=== PATIENT | male | born 1950 | race Caucasian/White ===

== ENCOUNTER 2018-04-20 04:53 | Emergency (ER) | payer MEDICARE ==
[~2018-04-20] VITALS: Ht 172.7 cm; Wt 81.2 kg
--- NOTE | 2018-04-20 05:03 | PHYS DOC ---
Adult General Chief Complaint Chief Complaint: SHORTNESS OF BREATH [facility] HPI Patient is a 68-year-old male who presents with complaint of shortness of breath and wheezing that started yesterday. Patient has long history of COPD and he states that he frequently has similar episodes that are exacerbated by cold weather. He states that he had gone out to lunch at [employer] and when he got out of the cold, shortness of breath started. He states that shortness of breath is been going on all night and symptoms are just not improving. Patient did an albuterol nebulizer treatment at home which helped some. Patient indicates that he does have a cough that is nonproductive. He denies any fever or chest pain. Patient states that the shortness of breath is worsened in cold weather and with minimal exertion. Review of Systems Review of Systems Constitutional: Denies fever or chills [] Respiratory: Complains of cough, wheezing and shortness of breath [] Cardiovascular: No additional information not addressed in HPI [] GI: Denies abdominal pain, nausea, vomiting [] Neurologic: Reports mild headache[] All other systems were reviewed and found to be within normal limits, except as documented in this note. Physical Exam Physical Exam Constitutional: Well developed, well nourished, no acute distress, non-toxic appearance. [] HENT: Normocephalic, atraumatic, bilateral external ears normal, oropharynx moist, no oral exudates, nose normal. [] Eyes: PERRLA, EOMI, conjunctiva normal, no discharge. [] Neck: Normal range of motion, no tenderness, supple, no stridor. [] Cardiovascular:Heart rate regular rhythm [] Lungs & Thorax: Breath sounds are diminished bilaterally with expiratory wheezes noted throughout.[] Abdomen: Bowel sounds normal, soft. [] Skin: Warm, dry, no erythema, no rash. [] Extremities: No tenderness, no cyanosis, no clubbing, ROM intact, no edema. [] Neurologic: Alert and oriented X 3, normal motor function, normal sensory function, no focal deficits noted. [] EKG EKG EKG demonstrates atrial fibrillation with rate of 95.[] Radiology/Procedures Radiology/Procedures [] Impressions: Chest x-ray demonstrates no acute process. Course & Med Decision Making Course & Med Decision Making Pertinent Labs and Imaging studies reviewed. (See chart for details) [] Dragon Disclaimer Dragon Disclaimer This electronic medical record was generated, in whole or in part, using a voice recognition dictation system. Departure Departure: Impression: Primary Impression: COPD with acute exacerbation Disposition: HOME, SELF-CARE Condition: STABLE Patient Instructions: Chronic Obstructive Pulmonary Disease Exacerbation Scripts Azithromycin (ZITHROMAX) 250 Mg Tablet 1 PKG PO UD for infection, #6 TAB Prov: JARVIS BANDA Jr. DO 04/20/18 Methylprednisolone (MEDROL) 4 Mg Tab.ds.pk 1 PKG PO UD for COPD, #1 PKG Prov: JARVIS BANDA Jr. DO 04/20/18 JARVIS BANDA Jr. DO Apr 20, 2018 05:03
[2018-04-20] MEDS ORDERED: ALBUTEROL SULFATE 2.5 MG/3 ML NEBU. CONT NEB ONE (05:15)
--- NOTE | 2018-04-20 05:26 | EKG ---
[address] [address] Test Date: 2018-04-20 Test Time: 05:23:01 Pat Name: SKYLAR SHAH Department: Room: Gender: M Distribution Designer: : [id number] Requested By: JARVIS BANDA Order Number: [id number] Reading MD: Josias Faria MD Measurements Intervals [place] Rate: 95 P: MS: QRS: -31 QRSD: 92 T: 70 QT: 354 QTc: 448 Interpretive Statements ATRIAL FIBRILLATION WITH CONTROLLED VENTRICULAR RESPONSE NON-SPECIFIC ST/T CHANGES Electronically Signed On 04-20-2018 11:11:48 GENERAL OFFICE ASSISTANT by Josias Faria MD
[2018-04-20 05:29] LABS: BASO % 0 % (0-3); EOS # 0.2 x10^3/uL (0.0-0.7); EOS % 4 % (0-3); HEMATOCRIT 36.2 % (39.0-53.0); HEMOGLOBIN 11.9 g/dL (13.0-17.5); LYMPH # 0.7 x10^3/uL (1.0-4.8); LYMPH % 15 % (24-48); MEAN CORPUSCULAR HEMOGLOBIN 28 pg (25-35); MEAN CORPUSCULAR HGB CONC 33 g/dL (31-37); MEAN CORPUSCULAR VOLUME 87 fL (79-100); MONO # 0.5 x10^3/uL (0.0-1.1); MONO % 11 % (0-9); NEUT # 3.3 x10^3uL (1.8-7.7); NEUT % 71 % (31-73); PLATELET COUNT 130 x10^3/uL (140-400); RED BLOOD COUNT 4.17 x10^6/uL (4.30-5.70); RED CELL DISTRIBUTION WIDTH 16.1 % (11.5-14.5); WHITE BLOOD COUNT 4.7 x10^3/uL (4.0-11.0)
[2018-04-20] MEDS ORDERED: IPRATROPIUM BROMIDE 0.5 MG/2.5 ML NEBU. NEB ONE (05:30)
[2018-04-20] MEDS ORDERED: methylPREDNISolone SOD SUCC PF 125 MG/2 ML VIAL. IV ONE (05:30)
[2018-04-20 05:47] LABS: ALBUMIN/GLOBULIN RATIO 0.8 (1.0-1.7); CALCIUM 8.6 mg/dL (8.5-10.1); CREATININE 0.9 mg/dL (0.7-1.3); GFR 83.7; POTASSIUM 4.4 mmol/L (3.5-5.1); TOTAL BILIRUBIN 0.4 mg/dL (0.2-1.0); TOTAL PROTEIN 6.6 g/dL (6.4-8.2)
[2018-04-20 05:50] LABS: INFLUENZA A PATIENT NEGATIVE (NEGATIVE); INFLUENZA B PATIENT NEGATIVE (NEGATIVE)
[2018-04-20] MEDS ORDERED: AZIT250T PO (05:57)
[2018-04-20] MEDS ORDERED: METH4TAB2 PO (05:57)
[2018-04-20 06:02] VITALS: BP 144/78
--- NOTE | 2018-04-20 07:55 | RAD ---
Examination: CHEST PA LATERAL History: Shortness of air Comparison/Correlation: None Findings: PA and lateral views of the chest were obtained. Heart size and pulmonary vasculature are normal. No infiltrate or pleural effusion. No pneumothorax. Bony structures are unremarkable for the patient's age. Impression: No active disease. Electronically signed by: Sumit Maria MD (04/20/2018 7:52 AM) [facility]
== END 2018-04-20 07:45 | disposition home or self-care (01) ==
LOC: ER 04:53
DX: J44.1 Chronic obstructive pulmonary disease with (acute) exacerbation (principal)
CPT/HCPCS: 36415; 71046; 80053; 83880; 84484; 85025; 87804; 93005; 94644; 96374; 99285; J2930; J7613; 94640